=== PATIENT | female | born 1990 | race Hispanic/Latino ===

== ENCOUNTER 2016-05-12 13:27 | Emergency (ER) | payer OTHER ==
[2016-05-12 16:31] LABS: Hematocrit 43.8 % (30.3-42.9)
[2016-05-12 17:02] LABS: Bilirubin,Urine NEG (Negative); Blood,Urine NEG (Negative); Ketones,Urine NEG (Negative); Leukocyte Esterase,Urine TR (Negative); Mucus,Urine FEW /HPF; Nitrite,Urine NEG (Negative); Protein,Urine <15 mg/dL mg/dL (Negative); Urobilinogen,Urine < 2.0 mg/dL (<2.0)
[2016-05-12] MEDS ORDERED: TYLENOL ONE (17:23)
[2016-05-12] MEDS ORDERED: TYLENOL PO ONE (18:16)
--- NOTE | 2016-05-12 18:26 | Emergency Department Report ---
ED General Adult HPI - General Chief complaint: Syncope Stated complaint: SYNCOPE/LACERATION Time Seen by Provider: 05/12/16 15:40 Source: patient, EMS Mode of arrival: Stretcher Limitations: No Limitations - History of Present Illness Initial comments: The patient [facility] a [facility] syncopal episode. She states that she fell in her cell upping her head after just getting up. She states that she has had positional syncope for many years. Her last episode was almost 2 years ago but she's had several in the past. She denies being recently ill. She has no symptoms other than mild soreness associated with a forehead laceration. She does not complain of any significant headache. She denies neck or back pain. She denies any other complaints. -: minutes(s) Location: head Associated Symptoms: denies other symptoms - Related Data Home Medications Medication Instructions Recorded Confirmed Last Taken Sertraline HCl [Zoloft] 50 mg PO DAILY 05/12/16 05/12/16 Unknown Allergies Allergy/AdvReac Type Severity Reaction Status Date / Time No Known Allergies Allergy Unverified 05/12/16 13:34 ED Review of Systems ROS: Stated complaint: SYNCOPE/LACERATION Other details as noted in HPI Constitutional: denies: chills, fever Eyes: denies: eye pain, eye discharge, vision change ENT: denies: ear pain, throat pain Respiratory: denies: cough, shortness of breath, wheezing Cardiovascular: denies: chest pain, palpitations Endocrine: no symptoms reported Gastrointestinal: denies: abdominal pain, nausea, diarrhea Genitourinary: denies: urgency, dysuria, discharge Musculoskeletal: denies: back pain, joint swelling, arthralgia Skin: denies: rash, lesions Neurological: denies: headache, weakness, paresthesias Psychiatric: denies: anxiety, depression Hematological/Lymphatic: denies: easy bleeding, easy bruising ED Past Medical Hx - Past Medical History Previous Medical History?: Yes Hx Psychiatric Treatment: Yes (depression) Additional medical history: Syncope - Surgical History Past Surgical History?: Yes Additional Surgical History: Tonsil removed, Left arm surgery - Medications Home Medications: Home Medications Medication Instructions Recorded Confirmed Last Taken Type Sertraline HCl [Zoloft] 50 mg PO DAILY 05/12/16 05/12/16 Unknown History ED Physical Exam - General Limitations: No Limitations General appearance: alert, in no apparent distress - Head Head exam: Present: atraumatic, normocephalic - Eye Eye exam: Present: normal appearance. Absent: scleral icterus - ENT ENT exam: Present: mucous membranes moist - Neck Neck exam: Present: normal inspection - Respiratory Respiratory exam: Present: normal lung sounds bilaterally. Absent: respiratory distress - Cardiovascular Cardiovascular Exam: Present: regular rate, normal rhythm. Absent: systolic murmur, diastolic murmur, rubs, gallop - GI/Abdominal GI/Abdominal exam: Present: soft, normal bowel sounds. Absent: distended, tenderness, guarding, rebound, rigid - Extremities Exam Extremities exam: Present: normal inspection - Back Exam Back exam: Present: normal inspection - Neurological Exam Neurological exam: Present: alert, oriented X3, CN II-XII intact. Absent: motor sensory deficit - Psychiatric Psychiatric exam: Present: normal affect, normal mood - Skin Skin exam: Present: warm, dry, intact, normal color. Absent: rash ED Course Vital Signs 05/12/16 13:35 Temperature 98.4 F Pulse Rate 58 L Respiratory 20 Rate O2 Sat by Pulse 100 Oximetry - Laceration /Wound Repair Face Wound Location: head Wound Length (cm): 3 Wound's Depth, Shape: superficial Betadine Prep?: Yes Anesthesia: 1% Lidocaine Wound Repaired With: sutures Suture Size/Type: 6:0 Number of Sutures: 6 Layer Closure?: No ED Medical Decision Making - Lab Data Result diagrams: 05/12/16 15:54 05/12/16 15:54 Laboratory Results - last 24 hr 05/12/16 16:37 Urine Color Yellow Urine Turbidity Cloudy Urine pH 7.0 Ur Specific [place] 1.013 Urine Protein <15 mg/dl Urine Glucose (UA) Neg Urine Ketones Neg Urine Blood Neg Urine Nitrite Neg Urine Bilirubin Neg Urine Urobilinogen < 2.0 Ur Leukocyte Esterase Tr Urine WBC (Auto) 3.0 Urine RBC (Auto) 3.0 U Epithel Cells (Auto) 12.0 Amorphous Crystals Few Urine Mucus Few Urine HCG, Qual Negative Laboratory Results - last 24 hr 05/12/16 05/12/16 05/12/16 15:54 15:54 16:37 WBC 12.0 H RBC 4.69 Hgb 14.5 H Hct 43.8 H MCV 94 MCH 31 MCHC 33 RDW 13.4 Plt Count 316 Lymph % (Auto) 14.4 [place] % (Auto) 5.2 Eos % (Auto) 1.1 Baso % (Auto) 0.7 Lymph # 1.7 [place] # 0.6 Eos # 0.1 Baso # 0.1 Seg Neutrophils % 78.6 H Seg Neutrophils # 9.5 H Sodium 138 Potassium 4.7 Chloride 98.9 Carbon Dioxide 25 Anion Gap 19 BUN 13 Creatinine 0.6 L Estimated GFR > 60 BUN/Creatinine Ratio 21.66 Glucose 95 Calcium 9.2 Urine Color Yellow Urine Turbidity Cloudy Urine pH 7.0 Ur Specific [place] 1.013 Urine Protein <15 mg/dl Urine Glucose (UA) Neg Urine Ketones Neg Urine Blood Neg Urine Nitrite Neg Urine Bilirubin Neg Urine Urobilinogen < 2.0 Ur Leukocyte Esterase Tr Urine WBC (Auto) 3.0 Urine RBC (Auto) 3.0 U Epithel Cells (Auto) 12.0 Amorphous Crystals Few Urine Mucus Few Urine HCG, Qual Negative - EKG Data -: EKG Interpreted by Me EKG shows normal: sinus rhythm, axis, intervals, QRS complexes, ST-T waves Rate: normal - EKG Data Interpretation: normal EKG Critical care attestation.: If time is entered above; I have spent that time in minutes in the direct care of this critically ill patient, excluding procedure time. ED Disposition Clinical Impression: Vasovagal syncope Forehead laceration Qualifiers: Encounter type: initial encounter Qualified Code(s): S01.81XA - Laceration without foreign body of other part of head, initial encounter Disposition: DISCHARGED TO HOME OR SELFCARE Is pt being admited?: No Does the pt Need Aspirin: No Condition: Stable Instructions: Syncope (ED) Additional Instructions: Get up slowly and stay well-hydrated. Head trauma instructions wound care instructions. Sutures out in 6 days. Referrals: PRIMARY CARE, [Primary Care Provider] - 3-5 Days Time of Disposition: 19:38
[2016-05-12 18:33] LABS: Basophils % (Auto) 0.7 % (0.0-1.8); Eosinophils % (Auto) 1.1 % (0.0-4.3); Hemoglobin 14.5 gm/dl (10.1-14.3); Mean Corpuscular HGB Conc 33 % (30-34); Mean Corpuscular Hemoglobin 31 pg (28-32); Mean Corpuscular Volume 94 fl (79-97); Platelet Count 316 K/mm3 (140-440); Red Blood Count 4.69 M/mm3 (3.65-5.03); Red Cell Distribution Width 13.4 % (13.2-15.2)
[2016-05-12 19:02] LABS: Anion Gap 19 mmol/L; BUN/Creatinine Ratio 21.66; Blood Urea Nitrogen 13 mg/dL (7-17); Calcium 9.2 mg/dL (8.4-10.2); Carbon Dioxide 25 mmol/L (22-30); Chloride 98.9 mmol/L (98-107); Glucose 95 mg/dL (65-100); Potassium 4.7 mmol/L (3.6-5.0); Sodium 138 mmol/L (137-145)
[2016-05-12 20:15] VITALS: BP 130/82
== END 2016-05-12 20:13 | disposition home or self-care (01) ==
LOC: ED 13:27
DX: S01.81XA Laceration without foreign body of other part of head, initial encounter (principal); R55 Syncope and collapse; F32.9 Major depressive disorder, single episode, unspecified; W18.30XA Fall on same level, unspecified, initial encounter; Y93.89 Activity, other specified; Y99.8 Other external cause status; Y92.143 Cell of prison as the place of occurrence of the external cause
CPT/HCPCS: 36415; 80048; 81001; 81025; 85025; 93005; 93010